=== PATIENT | female | born 1995 | race Two or more races ===

== ENCOUNTER 2019-02-09 14:00 | Inpatient (IN) | payer OTHER ==
[~2019-02-09] VITALS: Ht 177.8 cm; Wt 68.0 kg
[2019-02-09 15:00] VITALS: BP 126/78
[2019-02-09] MEDS ORDERED: ONDANSETRON HCL 4 MG TABLET PO PRN (16:30)
[2019-02-09] MEDS ORDERED: IBUPROFEN 600 MG TABLET PO PRN (16:30)
[2019-02-09] MEDS ORDERED: MELATONIN 3 MG TABLET PO PRN (16:30)
[2019-02-09] MEDS: METHOCARBAMOL 500 MG TABLET PO PRN (17:17)
[2019-02-09] MEDS: BUTALBITAL/ACETAMINOPHEN/CAFFEINE 50-325-40 MG TABLET PO PRN (18:33)
[2019-02-09] MEDS: DOCUSATE SODIUM 100 MG CAPSULE PO SCH ×2 (20:50→21:00)
[2019-02-09] MEDS: OxyCODONE HCL 5 MG IR TABLET PO PRN (20:50)
[2019-02-09] MEDS: LORazepam 1 MG TABLET PO PRN (20:50)
[2019-02-09] MEDS: GABAPENTIN 100 MG CAPSULE PO SCH (20:50)
[2019-02-09] MEDS: SENNA 187 MG TABLET PO SCH ×2 (20:50→21:00)
[2019-02-09] MEDS: CIPROFLOXACIN HCL 0.2%/HYDROCORT 1% 10 ML OTIC SUSPENSION AD SCH ×2 (20:51→21:00)
[2019-02-10 08:00] VITALS: BP 105/49
[2019-02-10 08:52] LABS: EOSINOPHILS % (AUTO) 2.4 % (1.0-6.0); HEMATOCRIT 39.9 % (36-46); HEMOGLOBIN 13.9 g/dL (12.0-16.0); LYMPHOCYTES # (AUTO) 2.8 K/uL (1.0-4.8); LYMPHOCYTES % (AUTO) 35.9 % (22.0-44.0); MEAN CORPUSCULAR HEMOGLOBIN 31.1 pg (26.0-34.0); MEAN CORPUSCULAR HGB CONC 34.9 G/dL (31.0-37.0); MEAN CORPUSCULAR VOLUME 89 fL (80-100); MONOCYTES # (AUTO) 0.6 K/uL (0.1-1.0); MONOCYTES % (AUTO) 7.6 % (2.0-9.0); NEUTROPHILS # (AUTO) 4.1 K/uL (1.8-7.7); NEUTROPHILS % (AUTO) 53.1 % (40.0-70.0); PLATELET COUNT (AUTO) 428 K/uL (150-450); RED BLOOD CELL COUNT(AUTO) 4.47 MIL/uL (4.00-5.20); RED CELL DISTRIBUTION WIDTH 12.3 % (11.5-14.5)
[2019-02-10 09:07] LABS: ALANINE AMINOTRANSFERASE 72 U/L (12-78); ALBUMIN 3.5 g/dL (3.4-5.0); ALKALINE PHOSPHATASE 61 U/L (46-116); ANION GAP 8 mmol/L (8-16); ASPARTATE AMINOTRANSFERASE 48 U/L (15-37); BILIRUBIN,TOTAL 0.3 mg/dL (0.1-1.0); CALCIUM, TOTAL 9.1 mg/dL (8.8-10.5); CARBON DIOXIDE 29 mmol/L (22-29); CHLORIDE 102 mmol/L (98-107); CREATININE 0.89 mg/dL (0.60-1.30); GLOMERULAR FILTR. RATE CALC > 60 mL/min (>60); GLUCOSE,RANDOM 89 mg/dL (70-110); POTASSIUM 4.7 mmol/L (3.5-5.1); SODIUM SERUM 139 mmol/L (136-145); TOTAL PROTEIN, SERUM 7.5 g/dL (6.4-8.2); UREA NITROGEN, BLOOD 11 mg/dL (7-18)
[2019-02-10] MEDS: METHOCARBAMOL 500 MG TABLET PO PRN ×2 (09:41→15:55)
[2019-02-10] MEDS: DOCUSATE SODIUM 100 MG CAPSULE PO SCH ×2 (09:41→21:00)
[2019-02-10] MEDS: GABAPENTIN 100 MG CAPSULE PO SCH ×3 (09:41→21:32)
[2019-02-10] MEDS: OxyCODONE HCL 5 MG IR TABLET PO PRN ×3 (09:41→17:04)
[2019-02-10] MEDS: CIPROFLOXACIN HCL 0.2%/HYDROCORT 1% 10 ML OTIC SUSPENSION AD SCH ×2 (09:42→21:32)
[2019-02-10 15:19] VITALS: BP 132/66
[2019-02-10] MEDS: SENNA 187 MG TABLET PO SCH (21:00)
[2019-02-11 00:16] VITALS: BP 107/69
[2019-02-11] MEDS: OxyCODONE HCL 5 MG IR TABLET PO PRN ×2 (08:09→20:58)
[2019-02-11] MEDS: DOCUSATE SODIUM 100 MG CAPSULE PO SCH ×2 (09:00→20:56)
[2019-02-11] MEDS: BUTALBITAL/ACETAMINOPHEN/CAFFEINE 50-325-40 MG TABLET PO PRN (11:18)
[2019-02-11] MEDS: METHOCARBAMOL 500 MG TABLET PO PRN ×2 (11:18→16:21)
[2019-02-11 12:56] VITALS: BP 138/81
[2019-02-11] MEDS: GABAPENTIN 100 MG CAPSULE PO SCH ×3 (12:56→20:55)
[2019-02-11] MEDS: CIPROFLOXACIN HCL 0.2%/HYDROCORT 1% 10 ML OTIC SUSPENSION AD SCH ×2 (12:56→20:56)
[2019-02-11 17:37] VITALS: BP 114/69
[2019-02-11] MEDS: SENNA 187 MG TABLET PO SCH (20:55)
[2019-02-12 00:10] VITALS: BP 133/71
[2019-02-12] MEDS: METHOCARBAMOL 500 MG TABLET PO PRN ×2 (00:10→20:57)
[2019-02-12 00:31] VITALS: BP 133/71
[2019-02-12] MEDS: GABAPENTIN 100 MG CAPSULE PO SCH ×3 (08:21→20:57)
[2019-02-12] MEDS: CIPROFLOXACIN HCL 0.2%/HYDROCORT 1% 10 ML OTIC SUSPENSION AD SCH ×2 (08:21→20:57)
[2019-02-12] MEDS: DOCUSATE SODIUM 100 MG CAPSULE PO SCH ×2 (08:21→20:57)
[2019-02-12 10:37] VITALS: BP 109/73
[2019-02-12] MEDS: OxyCODONE HCL 5 MG IR TABLET PO PRN (13:03)
[2019-02-12 17:49] VITALS: BP 95/59
[2019-02-12] MEDS: SENNA 187 MG TABLET PO SCH (20:57)
[2019-02-13] MEDS: ACETAMINOPHEN 325 MG TABLET PO PRN ×2 (08:58→20:58)
[2019-02-13] MEDS: CIPROFLOXACIN HCL 0.2%/HYDROCORT 1% 10 ML OTIC SUSPENSION AD SCH ×2 (08:58→20:57)
[2019-02-13] MEDS: DOCUSATE SODIUM 100 MG CAPSULE PO SCH ×2 (08:58→20:57)
[2019-02-13] MEDS: GABAPENTIN 100 MG CAPSULE PO SCH ×3 (08:58→20:57)
[2019-02-13 08:59] VITALS: BP 118/53
[2019-02-13] MEDS: OxyCODONE HCL 5 MG IR TABLET PO PRN ×3 (11:45→22:38)
[2019-02-13 16:15] VITALS: BP 107/68
[2019-02-13] MEDS: METHOCARBAMOL 500 MG TABLET PO PRN (16:32)
[2019-02-13] MEDS: SENNA 187 MG TABLET PO SCH (20:58)
[2019-02-13] MEDS: LORazepam 1 MG TABLET PO PRN (22:38)
[2019-02-13 23:38] VITALS: BP 132/77
[2019-02-14] MEDS: GABAPENTIN 100 MG CAPSULE PO SCH ×3 (08:14→20:35)
[2019-02-14] MEDS: DOCUSATE SODIUM 100 MG CAPSULE PO SCH ×2 (08:14→20:37)
[2019-02-14 09:10] VITALS: BP 114/77
[2019-02-14] MEDS: ACETAMINOPHEN 325 MG TABLET PO PRN (12:53)
[2019-02-14] MEDS: METHOCARBAMOL 500 MG TABLET PO PRN ×2 (12:53→20:35)
[2019-02-14 15:58] VITALS: BP 120/65
[2019-02-14] MEDS: OxyCODONE HCL 5 MG IR TABLET PO PRN (20:35)
[2019-02-14] MEDS: SENNA 187 MG TABLET PO SCH (20:37)
[2019-02-15] MEDS: DOCUSATE SODIUM 100 MG CAPSULE PO SCH ×2 (08:02→20:39)
[2019-02-15] MEDS: GABAPENTIN 100 MG CAPSULE PO SCH ×3 (08:02→20:38)
[2019-02-15 08:04] VITALS: BP 106/63
[2019-02-15] MEDS: ACETAMINOPHEN 325 MG TABLET PO PRN (08:07)
[2019-02-15 15:57] VITALS: BP 120/77
[2019-02-15] MEDS: SENNA 187 MG TABLET PO SCH (20:39)
[2019-02-15] MEDS: BUTALBITAL/ACETAMINOPHEN/CAFFEINE 50-325-40 MG TABLET PO PRN (20:41)
[2019-02-15 23:04] VITALS: BP 104/65
[2019-02-16] MEDS ORDERED: GABA-529 PO (01:38)
[2019-02-16] MEDS ORDERED: DOCU-275 PO (01:38)
[2019-02-16] MEDS ORDERED: ACET-2247 PO (01:48)
[2019-02-16] MEDS ORDERED: METH500T7 PO (01:48)
[2019-02-16] MEDS ORDERED: OXYC5 PO (01:48)
[2019-02-16] MEDS ORDERED: BUTA-295 PO (01:48)
[2019-02-16] MEDS ORDERED: IBUP-2070 PO (01:48)
[2019-02-16] MEDS ORDERED: LORA-1000 PO (01:48)
[2019-02-16 08:57] VITALS: BP 102/59
[2019-02-16] MEDS: GABAPENTIN 100 MG CAPSULE PO SCH ×3 (09:15→20:59)
[2019-02-16] MEDS: DOCUSATE SODIUM 100 MG CAPSULE PO SCH ×2 (09:16→20:59)
[2019-02-16] MEDS: METHOCARBAMOL 500 MG TABLET PO PRN (12:51)
[2019-02-16 16:05] VITALS: BP 107/55
[2019-02-16] MEDS: SENNA 187 MG TABLET PO SCH (20:59)
[2019-02-16] MEDS: BUTALBITAL/ACETAMINOPHEN/CAFFEINE 50-325-40 MG TABLET PO PRN (20:59)
[2019-02-16 23:00] VITALS: BP 116/58
[2019-02-17] MEDS ORDERED: ONDA-104 PO (01:45)
[2019-02-17 09:00] VITALS: BP 121/71
[2019-02-17] MEDS: DOCUSATE SODIUM 100 MG CAPSULE PO SCH (09:26)
[2019-02-17] MEDS: GABAPENTIN 100 MG CAPSULE PO SCH (09:26)
== END 2019-02-17 14:40 | disposition home or self-care (01) | DRG 87 ==
LOC: 2WR 14:00
DX: S06.5X0A Traumatic subdural hemorrhage without loss of consciousness, initial encounter (principal); S02.19XA Other fracture of base of skull, initial encounter for closed fracture; F43.23 Adjustment disorder with mixed anxiety and depressed mood; F43.10 Post-traumatic stress disorder, unspecified; H92.01 Otalgia, right ear; H91.91 Unspecified hearing loss, right ear; S02.0XXA Fracture of vault of skull, initial encounter for closed fracture; F43.12 Post-traumatic stress disorder, chronic; F41.9 Anxiety disorder, unspecified; Z91.81 History of falling; M43.17 Spondylolisthesis, lumbosacral region
CPT/HCPCS: 70450; 87081; 92507; 92523; 97110; 97112; 97116; 97150; 97162; 97166; 97530; 97535; 99366